=== PATIENT | male | born 1945 | race Caucasian/White ===

== ENCOUNTER 2017-08-11 18:26 | Inpatient (IN) | payer MEDICARE ==
[~2017-08-11] VITALS: Ht 172.7 cm; Wt 112.5 kg
[2017-08-11] MEDS ORDERED: TAMS-3 PO (18:48)
[2017-08-11] MEDS ORDERED: OXYC10TA49 PO (18:48)
[2017-08-11] MEDS ORDERED: ATEN50TA PO (18:48)
[2017-08-11] MEDS ORDERED: GABA600T2 PO (18:48)
[2017-08-11] MEDS ORDERED: PREG75CA PO (18:48)
[2017-08-11 19:49] LABS: BASOPHILS # (AUTO) 0.1 K/uL (0.0-8.0); BASOPHILS % (AUTO) 0.7 % (0.0-2.0); EOSINOPHILS # (AUTO) 0.1 K/uL (0.0-0.7); EOSINOPHILS % (AUTO) 1.6 % (0.0-7.0); HEMATOCRIT 42.9 % (36.7-47.1); LYMPHOCYTES # (AUTO) 1.4 K/uL (20.0-40.0); LYMPHOCYTES % (AUTO) 16.2 % (20.5-51.5); MEAN CORPUSCULAR HGB CONC 35 g/dL (32.5-36.3); MEAN CORPUSCULAR VOLUME 91.8 fL (73.0-96.2); MONOCYTES # (AUTO) 0.6 K/uL (2.0-10.0); MONOCYTES % (AUTO) 6.9 % (0.0-11.0); NEUTROPHILS # (AUTO) 6.5 K/uL (1.8-8.9); NEUTROPHILS % (AUTO) 74.6 % (38.5-71.5); PLATELET COUNT (AUTO) 145 K/uL (152-348); RED BLOOD CELL COUNT(AUTO) 4.67 MIL/uL (4.06-5.63); WHITE BLOOD COUNT (AUTO) 8.7 K/uL (3.6-10.2)
[2017-08-11 19:56] LABS: CARBON DIOXIDE 28 mmol/L (21-32); CHLORIDE 107 mmol/L (98-107); CREATININE 0.9 mg/dL (0.6-1.3); GLUCOSE 93 mg/dL (74-106); POTASSIUM 4.2 mmol/L (3.5-5.1); UREA NITROGEN, BLOOD 16 mg/dL (7-18)
[2017-08-11 20:03] LABS: ALANINE AMINOTRANSFERASE 27 U/L (16-63); ALKALINE PHOSPHATASE 80 U/L (50-136); ASPARTATE AMINOTRANSFERASE 22 U/L (15-37); BILIRUBIN,DIRECT 0.2 mg/dL (0.0-0.2); BILIRUBIN,TOTAL 0.9 mg/dL (0.2-1.0); TOTAL PROTEIN, SERUM 7.2 g/dL (6.4-8.2)
[2017-08-11 20:25] LABS: THYROID STIMULATING HORMONE 2.092 mIU/mL (0.358-3.740)
[2017-08-11] MEDS ORDERED: ATENOLOL 50 MG TABLET PO ONE (20:45)
[2017-08-11] MEDS ORDERED: GABAPENTIN 300 MG CAPSULE PO ONE (20:45)
[2017-08-11] MEDS ORDERED: OXYCODONE/APAP 5-325 MG TABLET PO ONE ×2 (20:45→21:30)
[2017-08-11] MEDS ORDERED: ATENOLOL 50 MG TABLET ONE (21:33)
[2017-08-11] MEDS ORDERED: GABAPENTIN 300 MG CAPSULE ONE (21:33)
[2017-08-11] MEDS ORDERED: OXYCODONE/APAP 5-325 MG TABLET ONE (21:33)
[2017-08-11 21:57] LABS: *BILIRUBIN,URIN NEGATIVE (NEGATIVE); *BLOOD, URINE NEGATIVE (NEGATIVE); *CLARITY,URINE CLEAR (CLEAR); *COLOR,URINE YELLOW (YELLOW); *KETONES,URINE NEGATIVE (NEGATIVE); *PROTEIN,URINE 2+ (NEGATIVE); *UROBILINOGEN,URINE 0.2 E.U./dl (NORMAL); LEUKOCYTE ESTERASE ,URINE NEGATIVE (NEGATIVE); NITRITE, URINE POSITIVE (NEGATIVE); PH,URINE 5.5 (5.0-8.0); UGLUCOSE NEGATIVE (NEGATIVE)
[2017-08-11 22:14] LABS: *AMPHETAMINE, URINE NEGATIVE (NEGATIVE); *BARBITURATE, URINE NEGATIVE (NEGATIVE); *CANNABINOID, URINE NEGATIVE (NEGATIVE); *COCCAINE, URINE NEGATIVE (NEGATIVE); *OPIATE, URINE NEGATIVE (NEGATIVE); *PHENCYCLIDINE SCREEN,URINE NEGATIVE (NEGATIVE)
--- NOTE | 2017-08-11 22:15 | NUR ---
Pt. admitted to GPS, under care of Dr. Dumont Belongs List completed
[2017-08-11 22:27] LABS: MUCUS,URINE FEW /LPF (0-FEW); SQUAMOUS EPITHELIAL CELL,UR FEW /HPF (NONE SEEN)
[2017-08-11 22:28] LABS: BACTERIA,URINE MANY /HPF (NONE SEEN)
[2017-08-11] MEDS ORDERED: CLONAZEPAM 0.5 MG TABLET PO PRN (23:15)
[2017-08-11] MEDS ORDERED: ACETAMINOPHEN 325 MG TABLET PO PRN (23:15)
[2017-08-11] MEDS ORDERED: MAGNESIUM HYDROXIDE 30 ML LIQUID UDC PO PRN (23:15)
[2017-08-11] MEDS ORDERED: MAG HYDROX/AL HYDROX/SIMETH 30 ML LIQUID UDC PO PRN (23:15)
--- NOTE | 2017-08-12 06:44 | NUR ---
GPS: REMAIN CALM AND COOPERATIVE WITH NURSING CARE. PLEASANT UPON APPROACH. SLEPT 5:15 HRS THROUGH THE NIGHT. AMBULATE WITH FWW. A/O X4, NO AGITATION NOTED. DENIES SI AT THIS TIME.CONTINUE MONITORING FOR SAFETY.
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
[2017-08-12 07:30] VITALS: BP 158/74
[2017-08-12] MEDS: TAMSULOSIN HCL 0.4 MG CAP.SR.24H PO SCH (08:47)
[2017-08-12] MEDS: ATENOLOL 50 MG TABLET PO SCH (08:48)
[2017-08-12] MEDS ORDERED: Medication Not On Formulary EA (Gabapentin 600 MG) PO SCH (09:00)
[2017-08-12] MEDS ORDERED: ATENOLOL 50 MG TABLET PO SCH (09:00)
[2017-08-12] MEDS ORDERED: Medication Not On Formulary EA (Pregabalin (Lyrica) 75 MG) PO SCH (09:00)
[2017-08-12] MEDS ORDERED: TAMSULOSIN HCL 0.4 MG CAP.SR.24H PO SCH (09:00)
[2017-08-12] MEDS: GABAPENTIN 300 MG CAPSULE PO SCH ×3 (09:20→16:33)
[2017-08-12] MEDS: PREGABALIN 25 MG CAPSULE PO SCH ×2 (09:20→16:33)
--- NOTE | 2017-08-12 09:29 | NUR ---
Spoke with Rosemarie Khai (ex-) and notified her of patient's admission to unit. Rosemarie verbalized understanding. She did not have any questions. Pt made aware.
[2017-08-12] MEDS: DULOXETINE 30 MG CAPSULE.DR PO SCH (13:01)
[2017-08-12 16:59] VITALS: BP 118/49
[2017-08-12 20:00] VITALS: BP 119/51
[2017-08-13] MEDS: OXYCODONE HCL 5 MG TABLET PO PRN ×2 (00:54→20:51)
--- NOTE | 2017-08-13 00:54 | NUR ---
GPS: PATIENT C/O LEFT KNEE PAIN. OXYIR 10 MG PO GIVEN FOR PAIN.
--- NOTE | 2017-08-13 01:54 | NUR ---
GPS: PATIENT RESTING QUIETLY. PRN EFFECTIVE FOR PAIN.
--- NOTE | 2017-08-13 06:25 | NUR ---
GPS: PATIENT REMAIN CALM AND COOPERATIVE. WITH MEDICATIONS AND CARE. SLEPT 8.5 HRS THROUGH THE NIGHT. CONTINUE PLAN OF CARE.
[2017-08-13 07:30] VITALS: BP 127/68
[2017-08-13] MEDS: PREGABALIN 25 MG CAPSULE PO SCH ×2 (09:01→17:05)
[2017-08-13] MEDS: GABAPENTIN 300 MG CAPSULE PO SCH ×3 (09:01→17:05)
[2017-08-13] MEDS: ATENOLOL 50 MG TABLET PO SCH (09:02)
[2017-08-13] MEDS: DULOXETINE 30 MG CAPSULE.DR PO SCH ×2 (09:02→17:05)
[2017-08-13] MEDS: TAMSULOSIN HCL 0.4 MG CAP.SR.24H PO SCH (09:02)
--- NOTE | 2017-08-13 11:29 | NUR ---
CALLED FOR CONSULT PER DR. IVAN REQUESTED.
[2017-08-13 15:11] VITALS: BP 119/69
--- NOTE | 2017-08-13 19:45 | NUR ---
RECEIVED PATIENT IN THE DAY ROOM. HE IS NOTED A/O X 3 ABLE TO AMBULATE WITH A FWW AND ABLE TO MAKE HIS NEEDS KNOWN. HE IS NOTED CALM AND COOPERATIVE. HE DENIES SI, DENIES AH/VH. HE STATED, "I AM HERE BECAUSE A SAID SOMETHING THAT I SHOULD NOT HAVE SAID, BUT I DID NOT MEAN IT". GOOD INSIGHT AND JUDGMENT NOTED TO THE REASON FOR HIS ADMISSION. CONTINUE FIXED ON HIS LEFT KNEE SURGERY GONE WRONG FEW YEAR AGO. SAFETY EMPHASIS WILL CONTINUE TO MONITOR.
[2017-08-13 20:05] VITALS: BP 134/61
--- NOTE | 2017-08-13 20:15 | NUR ---
SPOKE WITH SOPHIA SR NP, AT ABOUT 2000 RE: URINALYSIS RESULTS ON 08/11/17 AT 2152. PER REMBERTO, TO WAIT FOR C&S RESULTS. URINE WAS COLLECTED FROM PATIENT AND SENT OUT FOR URINALYSIS AND C&S.
[2017-08-13 20:39] LABS: *BILIRUBIN,URIN NEGATIVE (NEGATIVE); *BLOOD, URINE NEGATIVE (NEGATIVE); *COLOR,URINE YELLOW (YELLOW); *KETONES,URINE NEGATIVE (NEGATIVE); *PROTEIN,URINE TRACE (NEGATIVE); *UROBILINOGEN,URINE 0.2 E.U./dl (NORMAL); LEUKOCYTE ESTERASE ,URINE 1+ (NEGATIVE); NITRITE, URINE NEGATIVE (NEGATIVE); UGLUCOSE NEGATIVE (NEGATIVE)
[2017-08-13 20:53] LABS: *CLARITY,URINE HAZY (CLEAR); BACTERIA,URINE FEW /HPF (NONE SEEN); RBC,URINE 0-3 /HPF (0-3); SQUAMOUS EPITHELIAL CELL,UR FEW /HPF (NONE SEEN); WBC,URINE 50-80 /HPF (0-3)
--- NOTE | 2017-08-13 22:55 | NUR ---
SPOKE WITH SOPHIA SR NP RE: URINALYSIS RESULTS, PER REMBERTO TO ADMINISTER KEFLEX 500MG PO BID X 7 DAYS FOR UTI. ORDER NOTED. WILL CONTINUE TO MONITOR.
[2017-08-13] MEDS: CEPHALEXIN MONOHYDRATE 500 MG CAPSULE PO SCH (23:11)
[2017-08-13] MEDS: TEMAZEPAM 7.5 MG CAPSULE PO PRN (23:14)
--- NOTE | 2017-08-14 06:34 | NUR ---
PATIENT SLEPT FOR APPROX 8.30HRS THROUGH THE NIGHT. HE HAD A SHOWER THIS AM. DENIES PAIN AT THIS TIME.
[2017-08-14 07:30] VITALS: BP 110/49
[2017-08-14] MEDS: GABAPENTIN 300 MG CAPSULE PO SCH ×3 (08:22→16:24)
[2017-08-14] MEDS: PREGABALIN 25 MG CAPSULE PO SCH ×2 (08:22→16:24)
[2017-08-14] MEDS: CEPHALEXIN MONOHYDRATE 500 MG CAPSULE PO SCH ×2 (08:22→16:24)
[2017-08-14] MEDS: DULOXETINE 30 MG CAPSULE.DR PO SCH ×2 (08:23→16:24)
[2017-08-14] MEDS: TAMSULOSIN HCL 0.4 MG CAP.SR.24H PO SCH (08:23)
[2017-08-14] MEDS: ATENOLOL 50 MG TABLET PO SCH (08:24)
[2017-08-14] MEDS: OXYCODONE HCL 5 MG TABLET PO PRN ×2 (10:16→21:29)
[2017-08-14 15:27] VITALS: BP 116/52
--- NOTE | 2017-08-14 15:36 | NUR ---
Initial DC Plan: Patient currently lives at home with his ex- Rosemarie [[address] [place] [address]. [place] [address]; [phone]]. Patient plans to return home upon discharge. SW will follow up with MD, patient, and Rosemarie to discuss most appropriate discharge plans. SW will form a safe and proper discharge.
--- NOTE | 2017-08-14 15:40 | NUR ---
Firearms Report: LUCILLE submitted Mental Health Report to [facility] on 08/14.
--- NOTE | 2017-08-14 18:27 | NUR ---
Pt alert, oriented x4, and calm. Able to make needs known, and ambulate with FWW. Pt describes pain being minimally affective by PRN pain medicationx1 request. Pt compliant with all routinely scheduled medication administration. Pt denies SI, displays good insight, and judgement while accepting delay in discharge until tomorrow. All needs attended to, will continue to monitor and endorse to oncoming pickle processor.
[2017-08-14 20:13] VITALS: BP 127/59
[2017-08-14] MEDS ORDERED: CEPHALEXIN MONOHYDRATE 500 MG CAPSULE PO ONE (21:15)
[2017-08-14] MEDS: TEMAZEPAM 7.5 MG CAPSULE PO PRN (22:52)
[2017-08-15 07:30] VITALS: BP 126/50
[2017-08-15] MEDS: DULOXETINE 30 MG CAPSULE.DR PO SCH (08:22)
[2017-08-15] MEDS: TAMSULOSIN HCL 0.4 MG CAP.SR.24H PO SCH (08:22)
[2017-08-15] MEDS: PREGABALIN 25 MG CAPSULE PO SCH (08:22)
[2017-08-15] MEDS: GABAPENTIN 300 MG CAPSULE PO SCH (08:26)
[2017-08-15 08:28] VITALS: BP 126/50
[2017-08-15] MEDS: ATENOLOL 50 MG TABLET PO SCH (08:28)
[2017-08-15] MEDS ORDERED: CEPHALEXIN MONOHYDRATE 500 MG CAPSULE PO SCH ×2 (09:00→15:00)
--- NOTE | 2017-08-15 09:59 | NUR ---
DC Note: Patient will be discharged home [[address] [place] [address]; [phone]] via private transportation. 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 Patient is alert and oriented x4 and denies SI and HI. Patient is aware and agreeable to discharge plans. LUCILLE spoke with patients ex- Rosemarie [[phone]] who is aware and agreeable to discharge plans. 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 Jevon Moreland [[address] [place] [address]; ]. Patient was provided a list of outpatient psychiatrists including: Dr. Bruce, Dr. Hartmann, and Dr. Sims [[phone]]. Patient was provided additional outpatient mental health referrals to [facility] [[phone]], [facility] [ ], and [facility] [[phone]]. Patient was provided a brief substance abuse intervention for alcohol use. Patient was provided outpatient referrals for [facility] [[phone]], [facility] [[phone]], and [facility] [[phone]]. Patient was encouraged to present at an Alcoholics Anonymous meeting on August 17 at 12pm [[facility] [place], [place].] Patient was provided smoking cessation referrals for [employer] and [employer] [phone]. Patient was encouraged to present at a Nicotine Anonymous Meeting on MondayAugust 16 at 6:30pm [[address] [facility]. [place], [place]].
--- NOTE | 2017-08-15 10:45 | NUR ---
GPS: Nursing Notes: Discharge Notes: Patient is awake and responding to his name, cooperative with nursing care, compliant with his medications, A/Ox4, denies any SI/HI, denies any AH/VH, denies any pain or discomfort, denies any SOB, discharge home at [address] [place] [address] via private transportation from [facility] . Took all his belongings with him. prescriptions and instructions given to patient. SW spoke with patients ex- Rosemarie [[phone]] who is aware and agreeable to discharge plans. 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 Jevon Moreland [[address] [place] [address]; ]. Patient was provided a list of outpatient psychiatrists including: Dr. Bruce, Dr. Hartmann, and Dr. Sims [[phone]]. Patient was provided additional outpatient mental health referrals to [facility] [[phone]], [facility] [ ], and [facility] [[phone]]. Patient was provided a brief substance abuse intervention for alcohol use. Patient was provided outpatient referrals for [facility] [[phone]], [facility] [[phone]], and [facility] [[phone]]. Patient was encouraged to present at an Alcoholics Anonymous meeting on August 17 at 12pm [[address] [place] [address] Patient was provided smoking cessation referrals for [employer] and [employer] [phone]. Patient was encouraged to present at a Nicotine Anonymous Meeting on MondayAugust 16 at 6:30pm [[address] [facility] [place], [place]
== END 2017-08-15 10:45 | disposition home or self-care (01) | DRG 885 ==
LOC: ER 18:27 → GPS 22:46
PROVIDERS: ADMIT Psychiatry & Neurology Psychiatry; ATTEND Internal Medicine
DX: F33.2 Major depressive disorder, recurrent severe without psychotic features (principal); G62.9 Polyneuropathy, unspecified; F23 Brief psychotic disorder; I10 Essential (primary) hypertension; Z73.6 Limitation of activities due to disability; F41.9 Anxiety disorder, unspecified; G89.4 Chronic pain syndrome; M19.90 Unspecified osteoarthritis, unspecified site; N40.0 Benign prostatic hyperplasia without lower urinary tract symptoms; F12.10 Cannabis abuse, uncomplicated; Z88.2 Allergy status to sulfonamides
CPT/HCPCS: 36415; 71045; 80307; 84443; 85025; 85730; 87077; 87086; 93005; A4663